=== PATIENT | female | born 1985 | race Caucasian/White ===

== ENCOUNTER 2020-06-30 10:20 | Outpatient (CLI) | payer BC | END 2020-06-30 10:21 | disposition home or self-care (01) | LOC: BICULT 10:20 | PROVIDERS: ATTEND Family Medicine | DX: R10.2 Pelvic and perineal pain (principal); Z90.722 Acquired absence of ovaries, bilateral; Z90.710 Acquired absence of both cervix and uterus | CPT/HCPCS: 76856 ==

== ENCOUNTER 2022-07-22 08:06 | Outpatient (CLI) | payer BC | END 2022-07-22 08:07 | disposition home or self-care (01) | LOC: BICRAD 08:06 | PROVIDERS: ATTEND Family Medicine | DX: J06.9 Acute upper respiratory infection, unspecified (principal) | CPT/HCPCS: 71046 ==

== ENCOUNTER 2022-10-07 06:57 | Day surgery (SDC) | payer BC ==
[2022-09-29 16:08] VITALS: BMI 21.9
[2022-10-07] MEDS ORDERED: Propofol 1,000 MG/100 ML VIAL IV ONE (07:16)
[2022-10-07 08:11] LABS: Hemoglobin 13.4 g/dL (12.0-16.0); Red Blood Cell (RBC) Count 4.35 mill/uL (4.20-5.40); White Blood Cell (WBC) Count 2.6 10x3/uL (4.8-10.8)
[2022-10-07 08:12] LABS: #Eosinphils 0.1 thou/uL (0.0-0.7); #Monocytes 0.1 thou/uL (0.11-0.59); #Neutrophils 1.2 thou/uL (1.40-6.50); %Basophils 1.2 % (0.0-1.0); %Eosinophils 1.9 % (0.0-10.0); %Lymphocytes 43.6 % (21.0-51.0); %Monocytes 5.4 % (0.0-10.0); %Neutrophils 47.1 % (42.0-75.0); Mean Corpuscular HGB CONC 33.4 g/dL (32.0-36.0); Mean Corpuscular Hemoglobin 30.8 pg (27.0-31.0); Mean Corpuscular Volume 92.2 fl (78.0-98.0); Mean Platelet Volume 9.4 fL (7.4-10.4); Platelet Count 172 10x3/uL (130-400); RBC Distribution Width 11.6 % (11.5-14.5)
[2022-10-07 08:32] LABS: Anion Gap 16 mmol/L (10-20); BUN (Urea Nitrogen) 14 mg/dL (7.0-18.7); Calc. Creatinine Clearance 111 mL/min (70-130); Carbon Dioxide 20 mmol/L (22-29); Chloride 108 mmol/L (98-107); Potassium 4.6 mmol/L (3.5-5.1); Sodium 139 mmol/L (136-145)
[2022-10-07 08:33] LABS: Calcium 9.4 mg/dL (7.8-10.44); Estimated GFR 114; Glucose 96 mg/dL (70-105)
[2022-10-07] MEDS ORDERED: Midazolam HCl 2 mg/2 ml Vial ONE (09:26)
[2022-10-07] MEDS ORDERED: fentaNYL PF 100 MCG/2 ML SYRINGE ONE (09:26)
[2022-10-07] MEDS ORDERED: Bupivacaine 0.25% HCL 30 ML VIAL ONE (09:27)
[2022-10-07] MEDS ORDERED: Lidocaine 2% PF 5 ML VIAL ONE (09:27)
[2022-10-07] MEDS ORDERED: EPINEPHrine 1 MG/ML AMP ONE (09:27)
[2022-10-07] MEDS ORDERED: CEFAZOLIN 2 GM VIAL ONE (09:39)
[2022-10-07] MEDS ORDERED: Sodium Chloride 0.9% 100 ML ONE (09:39)
== END 2022-10-07 11:57 | disposition home or self-care (01) ==
LOC: SDC 06:57
PROVIDERS: ATTEND Surgery
PROC: 0JH63WZ Insertion of Totally Implantable Vascular Access Device into Chest Subcutaneous Tissue and Fascia, Percutaneous Approach (ICD-10-PCS; principal; 2022-10-07)
DX: C53.8 Malignant neoplasm of overlapping sites of cervix uteri (principal)
CPT/HCPCS: 71045; 80048; 85025; C1788; J0171; J1642; J2001; J2250; J2704; J3490; S0020

== ENCOUNTER 2022-11-26 07:51 | Outpatient (CLI) | payer BC ==
[2022-11-26] MEDS ORDERED: Iopamidol-370 76% 500 ML MDV (1 ML CHARGE) ONE (15:26)
== END 2022-11-26 07:52 | disposition home or self-care (01) ==
LOC: BICCT 07:51
PROVIDERS: ATTEND Internal Medicine Hematology & Oncology
DX: C53.8 Malignant neoplasm of overlapping sites of cervix uteri (principal); C78.01 Secondary malignant neoplasm of right lung
CPT/HCPCS: 71260; 74177; Q9967

== ENCOUNTER 2023-02-15 10:15 | Outpatient (CLI) | payer BC | END 2023-02-15 10:16 | LOC: PET 10:15 | PROVIDERS: ATTEND Internal Medicine Hematology & Oncology | DX: C53.8 Malignant neoplasm of overlapping sites of cervix uteri (principal); C78.01 Secondary malignant neoplasm of right lung | CPT/HCPCS: 78815; A9552 ==

== ENCOUNTER 2023-05-10 08:18 | Outpatient (CLI) | payer BC | END 2023-05-10 08:19 | disposition home or self-care (01) | LOC: BICCT 08:18 | PROVIDERS: ATTEND Internal Medicine Hematology & Oncology | DX: C53.8 Malignant neoplasm of overlapping sites of cervix uteri (principal); C78.01 Secondary malignant neoplasm of right lung | CPT/HCPCS: 71260; 74177 ==

== ENCOUNTER 2023-09-07 08:31 | Outpatient (CLI) | payer BC | END 2023-09-07 08:32 | disposition home or self-care (01) | LOC: BICCT 08:31 | PROVIDERS: ATTEND Internal Medicine Hematology & Oncology | DX: C53.8 Malignant neoplasm of overlapping sites of cervix uteri (principal); C34.90 Malignant neoplasm of unspecified part of unspecified bronchus or lung; C78.1 Secondary malignant neoplasm of mediastinum | CPT/HCPCS: 71260; 74177 ==

== ENCOUNTER 2023-12-01 07:48 | Outpatient (CLI) | payer BC | END 2023-12-01 07:49 | disposition home or self-care (01) | LOC: BICCT 07:48 | PROVIDERS: ATTEND Internal Medicine Hematology & Oncology | DX: C53.8 Malignant neoplasm of overlapping sites of cervix uteri (principal); C78.01 Secondary malignant neoplasm of right lung | CPT/HCPCS: 71260; 74177 ==

== ENCOUNTER 2024-02-29 08:33 | Outpatient (CLI) | payer BC ==
[2024-02-29] MEDS ORDERED: Iopamidol 370 76% 100 ML VIAL ONE (10:03)
== END 2024-02-29 08:34 | disposition home or self-care (01) ==
LOC: BICCT 08:33
PROVIDERS: ATTEND Internal Medicine Hematology & Oncology
DX: C53.8 Malignant neoplasm of overlapping sites of cervix uteri (principal); C78.01 Secondary malignant neoplasm of right lung
CPT/HCPCS: 36415; 71260; 74177; 82565; Q9967

== ENCOUNTER 2025-02-11 08:05 | Outpatient (CLI) | payer BC ==
[2025-02-11] MEDS ORDERED: Iopamidol 370 76% 100 ML VIAL ONE (12:48)
== END 2025-02-11 08:06 | disposition home or self-care (01) ==
LOC: CT 08:05
PROVIDERS: ATTEND Internal Medicine Hematology & Oncology
DX: C53.8 Malignant neoplasm of overlapping sites of cervix uteri (principal); C78.01 Secondary malignant neoplasm of right lung
CPT/HCPCS: 71260; 74177; Q9967